=== PATIENT | male | born 1960 | race Caucasian/White ===

== ENCOUNTER 2018-09-16 09:36 | Emergency (ER) | payer OTHER ==
--- NOTE | 2018-09-16 10:05 | UC ---
UC General HPI - HPI Summary HPI Summary: States yesterday morning he developed left flank pain - has gotten progressively worse to the point of being unbearable. No urinary symptoms. No blood in his urine. No fever. No hx of kidney stone. 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 Denies any trauma, heavy lifting or fall. No vomiting. No fever. No URI symptoms. PMHx; CVA, HTN Meds; REviewed DId take his BP meds this AM - History of Current Complaint Chief Complaint: UCGU Stated Complaint: BACK PAIN Time Seen by Provider: 09/16/18 09:55 Pain Intensity: 8 - Allergy/Home Medications Allergies/Adverse Reactions: Allergies Allergy/AdvReac Type Severity Reaction Status Date / Time No Known Allergies Allergy Verified 09/16/18 09:44 PMH/Surg Hx/FS Hx/Imm Hx Previously Healthy: No Cardiovascular History: Cardiac Disease, Hypertension Neurological History: CVA - Surgical History Surgical History: Yes Surgery Procedure, Year, and Place: Left Carotid Stent 05/07/14 - Social History Alcohol Use: Daily Alcohol Amount: beer Substance Use Type: Marijuana Smoking Status (MU): Heavy Every Day Tobacco Smoker Review of Systems All Other Systems Reviewed And Are Negative: Yes Constitutional: Positive: Negative Musculoskeletal: Positive: Other: - left flank pain Physical Exam Triage Information Reviewed: Yes Appearance: Well-Appearing Vital Signs: Initial Vital Signs Temp 98 F 09/16/18 09:41 Pulse 76 09/16/18 09:41 Resp 16 09/16/18 09:41 BP 153/100 09/16/18 09:41 Pulse Ox 100 09/16/18 09:41 Eye Exam: Normal Respiratory: Positive: Lungs clear - diminished breath sounds. Prolonged expiratory phase, Other: Cardiovascular: Positive: RRR, Other: - systolic murmur Abdomen Description: Positive: Nontender, Other: - left sided deep pain, difficulty to reproduce the pain. Diagnostics - Radiology CT scan of abd/pelvis Radiology Interpretation Completed By: Radiologist Summary of Radiographic Findings: CT abd/pelvis -markedly distended bladder, thick walled bladder, suggestive of bladder outlet obstruction Course/Dx - Course Course Of Treatment: This is a 57 yr old with left flank pain Assessment U/A; unremarkable CT - markedly distended bladder - after further questions - patient admits he has urinary retention and frequency and has a hard time initiating urinating Discussed findings on CT and obtaining US including PVR - US showed distended bladder, dilated left hydroureter Denny catheter placed (after speaking with him and at length as he was very reluctant) Labs obtained to make sure no significant renal failure Plan Keep denny in place until follow up with Urology Urology will contact you with an apt. Start Tamsulosin as prescribed If you have any symptoms or fever, pain in abdomen or surrounding denny or blood in urine, call your primary or return to ER or urgent care Blood pressure is elevated - likely related to your condition today. Recommend follow up on your blood pressure We will contact you if any blood work is abnormal - Diagnoses Provider Diagnosis: Urinary retention, Hydroureter, left Discharge - Sign-Out/Discharge Documenting (check all that apply): Patient Departure All imaging exams completed and their final reports reviewed: Yes - Discharge Plan Condition: Fair Disposition: HOME Prescriptions: Tamsulosin CAP* [Flomax CAP*] 0.4 mg PO BEDTIME #30 cap Patient Education Materials: Urinary Retention in Men (ED) Referrals: Mando Gallegos MD [Primary Care Provider] - Additional Instructions: Keep denny in place until follow up with Urology Urology will contact you with an apt. Start Tamsulosin as prescribed If you have any symptoms or fever, pain in abdomen or surrounding denny or blood in urine, call your primary or return to ER or urgent care Blood pressure is elevated - likely related to your condition today. Recommend follow up on your blood pressure We will contact you if any blood work is abnormal - Billing Disposition and Condition Condition: FAIR Disposition: Home
[2018-09-16 12:47] VITALS: BP 167/101
[2018-09-16 15:55] LABS: ABS Basophils 0.1 10^3/ul (0-0.2); ABS Eosinophils 0.1 10^3/ul (0-0.6); ABS Lymphocytes 2.2 10^3/ul (1.0-4.8); ABS Monocytes 0.7 10^3/ul (0-0.8); ABS Neutrophils 5.1 10^3/ul (1.5-7.7); ABS Nucleated RBC 0 10^3/ul; Eosinophil % 1.6 %; Hematocrit 42 % (36-46); Hemoglobin 14.2 g/dL (14.0-18.0); Lymphocyte % 27.1 %; Mean Corpuscular HGB Conc 34 g/dL (31-36); Mean Corpuscular Hemoglobin 33 pg (27-31); Mean Corpuscular Volume 96 fL (80-94); Mean Platelet Volume 8.5 fL (7.4-10.4); Nucleated Red Blood Cells % 0; Platelet Count 310 10^3/uL (150-450); Red Blood Count 4.36 10^6 /uL (4.18-5.48); Red Cell Distribution Width 13 % (10.5-15); White Blood Count 8.1 10^3/uL (3.5-10.8)
[2018-09-16 15:58] LABS: Calcium 9.7 mg/dL (8.6-10.3); Potassium 4.5 mmol/L (3.5-5.0)
[2018-09-16 16:03] LABS: EGFR African American 87.1 (>60)
--- NOTE | 2018-09-17 07:32 | UC ---
- Progress Note Progress Note: reviewed blood work from 09/16/18 as available, reviewed same day notes as available. RN to call pt. Blood work without acute notations, but advise f/u pcp sabina as recommended yesterday. Course/Dx - Diagnoses Provider Diagnoses: Urinary retention, Hydroureter, left Discharge - Sign-Out/Discharge Documenting (check all that apply): Post-Discharge Follow Up All imaging exams completed and their final reports reviewed: Yes - Discharge Plan Condition: Fair Disposition: HOME Prescriptions: Tamsulosin CAP* [Flomax CAP*] 0.4 mg PO BEDTIME #30 cap Patient Education Materials: Urinary Retention in Men (ED) Referrals: Mando Gallegos MD [Primary Care Provider] - Additional Instructions: Keep denny in place until follow up with Urology Urology will contact you with an apt. Start Tamsulosin as prescribed If you have any symptoms or fever, pain in abdomen or surrounding denny or blood in urine, call your primary or return to ER or urgent care Blood pressure is elevated - likely related to your condition today. Recommend follow up on your blood pressure We will contact you if any blood work is abnormal - Billing Disposition and Condition Condition: FAIR Disposition: Home
== END 2018-09-16 12:57 | disposition home or self-care (01) ==
LOC: UCEAST 09:36
DX: R33.9 Retention of urine, unspecified (principal); N13.4 Hydroureter; N32.89 Other specified disorders of bladder; I11.9 Hypertensive heart disease without heart failure; Z86.73 Personal history of transient ischemic attack (TIA), and cerebral infarction without residual deficits; Z95.5 Presence of coronary angioplasty implant and graft; F17.200 Nicotine dependence, unspecified, uncomplicated
CPT/HCPCS: 36415; 51702; 74176; 76770; 80048; 81003; 85025; 99212; G0463

== ENCOUNTER 2018-09-22 10:27 | Emergency (ER) | payer OTHER ==
[2018-09-22 10:40] VITALS: BP 116/72
--- NOTE | 2018-09-22 10:42 | UC ---
Complaint Male HPI - History of Current Complaint Chief Complaint: UCGU Stated Complaint: URINARY COMPLAINT Time Seen by Provider: 09/22/18 10:42 Pain Intensity: 0 - Allergies/Home Medications Allergies/Adverse Reactions: Allergies Allergy/AdvReac Type Severity Reaction Status Date / Time No Known Allergies Allergy Verified 09/22/18 10:40 PMH/Surg Hx/FS Hx/Imm Hx - Surgical History Surgical History: Yes Surgery Procedure, Year, and Place: Left Carotid Stent 05/07/14 - Social History Alcohol Use: Daily Alcohol Amount: beer Substance Use Type: Marijuana Substance Use Comment - Amount & Last Used: daily Smoking Status (MU): Heavy Every Day Tobacco Smoker Type: Cigarettes Physical Exam Vital Signs: Initial Vital Signs Temp 98.8 F 09/22/18 10:37 Pulse 88 09/22/18 10:37 Resp 18 09/22/18 10:37 BP 116/72 09/22/18 10:37 Pulse Ox 100 09/22/18 10:37 Discharge - Discharge Plan Referrals: Mando Gallegos MD [Primary Care Provider] -
== END 2018-09-22 10:57 | disposition left against medical advice (07) ==
LOC: UCEAST 10:27
DX: R39.9 Unspecified symptoms and signs involving the genitourinary system (principal); Z53.21 Procedure and treatment not carried out due to patient leaving prior to being seen by health care provider

== ENCOUNTER 2018-10-26 20:37 | Emergency (ER) | payer OTHER ==
[2018-10-27 00:21] LABS: Urine Appearance Cloudy; Urine Bacteria 1+ (Absent); Urine Bilirubin Negative (Negative); Urine Blood 3+ (Negative); Urine Color Amber; Urine Glucose Negative (Negative); Urine Ketones Negative (Negative); Urine Nitrite Negative (Negative); Urine Protein 2+(100 mg/dL) (Negative); Urine Red Blood Cell 3+(>10/hpf) (Absent); Urine Specific Gravity 1.013 (1.010-1.030); Urine Squamous Epithelial Cell Present (Absent); Urine Urobilinogen Negative (Negative); Urine White Blood Cell 2+(11-20/hpf) (Absent)
[2018-10-27 00:25] LABS: ABS Basophils 0.1 10^3/ul (0-0.2); ABS Eosinophils 0.4 10^3/ul (0-0.6); ABS Lymphocytes 2.5 10^3/ul (1.0-4.8); ABS Monocytes 0.7 10^3/ul (0-0.8); ABS Neutrophils 5.2 10^3/ul (1.5-7.7); Eosinophil % 4.3 %; Hematocrit 38 % (42-52); Hemoglobin 13.2 g/dL (14.0-18.0); Lymphocyte % 27.9 %; Mean Corpuscular HGB Conc 35 g/dL (31-36); Mean Corpuscular Hemoglobin 33 pg (27-31); Mean Corpuscular Volume 95 fL (80-94); Mean Platelet Volume 8.4 fL (7.4-10.4); Nucleated Red Blood Cells % 0.1; Platelet Count 276 10^3/uL (150-450); Red Blood Count 4.02 10^6 /uL (4.18-5.48); Red Cell Distribution Width 13 % (10.5-15); White Blood Count 8.8 10^3/uL (3.5-10.8)
[2018-10-27 00:38] LABS: Calcium 9.2 mg/dL (8.6-10.3); Potassium 3.9 mmol/L (3.5-5.0); Total Bilirubin 0.3 mg/dL (0.2-1.0)
[2018-10-27 00:44] LABS: Albumin/Globulin Ratio 1.3 (1-3); BUN/Creatinine Ratio 28.4 (8-20); C Reactive Protein 9.99 mg/L (<8.01); EGFR African American 78.5 (>60); EGFR Non-African American 64.9 (>60); Globulin 3.2 g/dL (2-4); Total Protein 7.2 g/dL (6.4-8.9)
[2018-10-27] MEDS ORDERED: Iohexol 300* (CONTRAST) 10 ML SDV IV ONE (01:17)
[2018-10-27] MEDS ORDERED: Sulfamethox/Trimethoprim DS 800/160* TAB PO ONE (02:28)
[2018-10-27] MEDS ORDERED: Fluconazole 100 MG TAB* TAB PO ONE (02:28)
--- NOTE | 2018-10-27 02:31 | ED ---
GI/ HPI - HPI Summary HPI Summary: Patient with history of self catheter 4 times a day complains of blood in urine starting 3 days, and decreased urine output today. Patient states he has a history of "kidney issues" which requires him to self catheter. Patient followed by Dr. Dumont. Patient denies fever, cough, sore throat, CP, SOB, N/ V/D, abdominal pain, change in B, penile discharge, testicular symptoms. Medical history is CVA, HTN, enlarged prostate. - History of Current Complaint Chief Complaint: EDUrogenitalProblems Time Seen by Provider: 10/26/18 23:45 Stated Complaint: BLOOD IN URINE PER PT Hx Obtained From: Patient Onset/Duration: Started Days Ago Timing: Constant Severity: Mild Current Severity: Mild Vaginal Bleeding Description: Brownish-Red Pain Intensity: 1 Associated Signs and Symptoms: Positive: Hematuria Aggravating Factor(s): Nothing Alleviating Factor(s): Nothing - Allergy/Home Medications Allergies/Adverse Reactions: Allergies Allergy/AdvReac Type Severity Reaction Status Date / Time No Known Allergies Allergy Verified 10/26/18 20:47 PMH/Surg Hx/FS Hx/Imm Hx Endocrine/Hematology History: Denies: Hx Anticoagulant Therapy Cardiovascular History: Reports: Hx Hypertension - on meds Respiratory History: Reports: Hx Chronic Obstructive Pulmonary Disease (COPD) History: Denies: Hx Dialysis Sensory History: Denies: Hx Legally Blind Opthamlomology History: Denies: Hx Eye Prosthesis EENT History: Denies: Hx Deafness Neurological History: Reports: Hx CVA - Surgical History Surgery Procedure, Year, and Place: Left Carotid Stent 05/07/14 Infectious Disease History: No Infectious Disease History: Denies: Traveled Outside the [place] in Last 30 Days - Family History Known Family History: Positive: Non-Contributory - Social History Alcohol Use: Daily Alcohol Amount: beer Substance Use Type: Reports: Marijuana Substance Use Comment - Amount & Last Used: daily Smoking Status (MU): Heavy Every Day Tobacco Smoker Type: Cigarettes Review of Systems Constitutional: Negative Eyes: Negative ENT: Negative Cardiovascular: Negative Respiratory: Negative Gastrointestinal: Negative Positive: hematuria, other Musculoskeletal: Negative Skin: Negative Neurological: Negative Psychological: Normal All Other Systems Reviewed And Are Negative: Yes Physical Exam - Summary Physical Exam Summary: Abdomen soft nontender. Lung sounds clear to auscultation bilaterally. RRR. Triage Information Reviewed: Yes Vital Signs On Initial Exam: Initial Vitals Temp Pulse Resp BP Pulse Ox 97.8 F 71 15 145/78 98 10/26/18 20:44 10/26/18 20:44 10/26/18 20:44 10/26/18 20:44 10/26/18 20:44 Vital Signs Reviewed: Yes Appearance: Positive: Well-Appearing Skin: Positive: Warm Head/Face: Positive: Normal Head/Face Inspection Eyes: Positive: Normal Neck: Positive: Supple Respiratory/Lung Sounds: Positive: Clear to Auscultation Cardiovascular: Positive: Normal Abdomen Description: Positive: Nontender Musculoskeletal: Positive: Normal Neurological: Positive: Normal Psychiatric: Positive: Normal AVPU Assessment: Alert - [employer] Coma Scale Best Eye Response: 4 - Spontaneous Best Motor Response: 6 - Obeys Commands Best Verbal Response: 5 - Oriented Coma Scale Total: 15 Diagnostics - Vital Signs Vital Signs Temp Pulse Resp BP Pulse Ox 10/26/18 22:45 97.8 F 66 16 115/78 98 10/26/18 20:44 97.8 F 71 15 145/78 98 - Laboratory Lab Results: Lab Results 10/26/18 10/27/18 10/27/18 Range/Units 23:50 00:11 00:11 WBC 8.8 (3.5-10.8) 10^3/uL RBC 4.02 L (4.18-5.48) 10^6 /uL Hgb 13.2 L (14.0-18.0) g/dL Hct 38 L (42-52) % MCV 95 H (80-94) fL MCH 33 H (27-31) pg MCHC 35 (31-36) g/dL RDW 13 (10.5-15) % Plt Count 276 (150-450) 10^3/uL MPV 8.4 (7.4-10.4) fL Neut % (Auto) 58.5 % Lymph % (Auto) 27.9 % Beaver % (Auto) 8.0 % Eos % (Auto) 4.3 % Baso % (Auto) 1.3 % Absolute Neuts (auto) 5.2 (1.5-7.7) 10^3/ul Absolute Lymphs (auto) 2.5 (1.0-4.8) 10^3/ul Absolute Monos (auto) 0.7 (0-0.8) 10^3/ul Absolute Eos (auto) 0.4 (0-0.6) 10^3/ul Absolute Basos (auto) 0.1 (0-0.2) 10^3/ul Absolute Nucleated RBC 0.0 10^3/ul Nucleated RBC % 0.1 Sodium 134 L (135-145) mmol/L Potassium 3.9 (3.5-5.0) mmol/L Chloride 102 (101-111) mmol/L Carbon Dioxide 24 (22-32) mmol/L Anion Gap 8 (2-11) mmol/L BUN 33 H (6-24) mg/dL Creatinine 1.16 (0.67-1.17) mg/dL Est GFR ( Amer) 78.5 (>60) Est GFR (Non-Af Amer) 64.9 (>60) BUN/Creatinine Ratio 28.4 H (8-20) Glucose 94 (70-100) mg/dL Calcium 9.2 (8.6-10.3) mg/dL Total Bilirubin 0.30 (0.2-1.0) mg/dL AST 27 (13-39) U/L ALT 24 (7-52) U/L Alkaline Phosphatase 101 (34-104) U/L C-Reactive Protein 9.99 H (<8.01) mg/L Total Protein 7.2 (6.4-8.9) g/dL Albumin 4.0 (3.2-5.2) g/dL Globulin 3.2 (2-4) g/dL Albumin/Globulin Ratio 1.3 (1-3) Urine Color Kianna Urine Appearance Cloudy Urine pH 6.0 (5-9) Ur Specific Blaine 1.013 (1.010-1.030) Urine Protein 2+(100 mg/dl) A (Negative) Urine Ketones Negative (Negative) Urine Blood 3+ A (Negative) Urine Nitrate Negative (Negative) Urine Bilirubin Negative (Negative) Urine Urobilinogen Negative (Negative) Ur Leukocyte Esterase Negative (Negative) Urine WBC (Auto) 2+(11-20/hpf) A (Absent) Urine RBC (Auto) 3+(>10/hpf) A (Absent) Ur Squamous Epith Cells Present A (Absent) Urine Bacteria 1+ A (Absent) Urine Yeast Present A (Absent) Urine Glucose Negative (Negative) Result Diagrams: 10/27/18 00:11 10/27/18 00:11 Lab Statement: Any lab studies that have been ordered have been reviewed, and results considered in the medical decision making process. GIGU Course/Dx - Course Course Of Treatment: Patient with history of self catheter 4 times a day complains of blood in urine starting 3 days, and decreased urine output today. Patient states he has a history of "kidney issues" which requires him to self catheter. Patient followed by Dr. Dumont. Patient denies fever, cough, sore throat, CP, SOB, N/V/D, abdominal pain, change in B, penile discharge, testicular symptoms. Medical history is CVA, HTN, enlarged prostate. Physical exam:Abdomen soft nontender. Lung sounds clear to auscultation bilaterally. RRR. Vital signs within normal limits. HCB 13.2. UA positive for blood, rbc's , wbc's, bacteria and yeast. CT abdomen and pelvis positive for abnormal thickening of the bladder wall which may represent muscular hypertrophy secondary to bladder outlet obstruction. May also represent cystitis either due to infectious or inflammatory process. Kidneys are normal in appearance. No hydronephrosis or nephrolithiasis. Bladder scan showed 0ml urinary retention after patient self catheter here in the ED. Patient started on Bactrim and Diflucan 100mg daily x 10 days. Patient has appointment tomorrow at 4:[address] Dumont. Patient agrees to follow-up for further evaluation with Dr. Dumont. - Diagnoses Provider Diagnoses: Hematuria, UTI (urinary tract infection), Candiduria Discharge - Sign-Out/Discharge Documenting (check all that apply): Patient Departure Patient Received Moderate/Deep Sedation with Procedure: No - Discharge Plan Condition: Stable Disposition: HOME Prescriptions: Fluconazole 100 MG TAB* [Diflucan 100 MG TAB*] 100 mg PO DAILY 10 Days #10 tab Sulfamethox/Trimethoprim DS* [Bactrim DS 800/160 TAB*] 1 tab PO BID 10 Days #20 tab Patient Education Materials: Urinary Tract Infection in Men (ED), Hematuria (ED ) Referrals: Mando Gallegos MD [Primary Care Provider] - Additional Instructions: Follow-up at your appointment tomorrow with Dr. Dumont for further evaluation. Return to the ED for any new or worsening symptoms. - Billing Disposition and Condition Condition: STABLE Disposition: Home
[2018-10-27 02:46] VITALS: BP 131/73
== END 2018-10-27 02:31 | disposition home or self-care (01) ==
LOC: ED 20:37
DX: B37.49 Other urogenital candidiasis (principal); R31.9 Hematuria, unspecified; J44.9 Chronic obstructive pulmonary disease, unspecified; I10 Essential (primary) hypertension; Z86.73 Personal history of transient ischemic attack (TIA), and cerebral infarction without residual deficits; F17.210 Nicotine dependence, cigarettes, uncomplicated; N40.0 Benign prostatic hyperplasia without lower urinary tract symptoms
CPT/HCPCS: 36415; 74177; 80053; 81003; 81015; 85025; 86140; 87086; 99282; A9270-GY; Q9967

== ENCOUNTER 2018-11-25 06:25 | Observation (INO) | payer OTHER ==
--- NOTE | 2018-11-20 11:19 | HP ---
CC: Mando Gallegos MD * HISTORY AND PHYSICAL: DATE OF PLANNED ADMISSION AND SURGERY: 11/25/18 HISTORY OF PRESENT ILLNESS: Mr. Rosa is a 58-year-old white male who is admitted with urinary retention, prostate enlargement for transurethral resection of the prostate. Please refer to the pre-op history and physical by Dr Gallegos, included in the patient's records. For the last several months, the patient has been having increasing voiding symptoms consisting of hesitancy, intermittency, decreased urinary stream, and feeling of incomplete bladder emptying. He presented to the emergency room about 2 months ago with left flank pain radiating to the left lower quadrant associated with increasing difficulty voiding. He had a renal ultrasound, which showed mild- to-moderate left hydronephrosis and he had a large postvoid residual. A CT scan showed left hydronephrosis and hydroureter without associated ureteral calculi. There was a large degree of urinary retention. He had a Velázquez catheter placed draining 1,200 mL of clear urine. Following the placement of the catheter, his flank pain and abdominal pain resolved and the patient was sent home on catheter drainage. He was then evaluated in my office. At his initial visit, he was started on tamsulosin and taught how to perform intermittent self- catheterization. He then had a cystoscopy, which showed a moderately obstructing prostate with heavy bladder trabeculations, but no calculi or bladder tumors were seen. The patient was asked to continue on intermittent catheterization; however, he has not been performing it on a regular basis. He then had urodynamic studies, which showed a high voiding detrusor pressure of about 100 cm of water, indicating very good detrusor function and confirming that the retention is due to obstruction and not neurogenic bladder. Follow up renal ultrasound with catheter drainage showed resolution of the left hydronephrosis . The patient is now admitted for transurethral resection of the prostate. PAST MEDICAL HISTORY AND SYSTEM REVIEW: detailed in Dr. Gallegos's history and physical. MEDICATIONS: 1. He is hypertensive, on HCTZ 12.5 mg daily and on lisinopril 2.5 mg daily. 2. He has hyperlipidemia, on atorvastatin 80 mg daily. ALLERGIES: He denies any allergies to medications. FAMILY HISTORY: He denies any family history of prostate cancer. SOCIAL HISTORY: The patient is a chronic heavy smoker and also significant degree of alcohol intake, drinking 7 to 10 beers every day. DIAGNOSTIC DATA: The patient had a screening CT of the chest and was noted to have a small nodule that was further evaluated with a PET scan and the recommendation is for observation only. PHYSICAL EXAMINATION GENERAL: White male who is slim and looks older than his age. VITAL SIGNS: Blood pressure 130/70, pulse of 60, oxygen saturation 93% on room air. LUNGS: Bilateral wheezing. HEART: Regular and rhythmic. No murmurs. ABDOMEN: Soft. No masses. No tenderness. No CVA tenderness. : External genitalia are normal. RECTAL: Exam showed a moderately enlarged, but nonsuspicious prostate. IMPRESSION: 1. Urinary retention, most likely secondary to prostate enlargement with high voiding detrusor pressure on urodynamic studies with failure of medical treatment. 2. Chronic heavy smoking. 3. Excessive alcohol intake. 4. Essential hypertension, on treatment. PLAN/RECOMMENDATIONS: Plan is for cystoscopy and transurethral resection of the prostate. I discussed the operation in detail with the patient. Some of the potential complications including infection, hematuria, and a small incidence of urinary incontinence, high incidence of retrograde ejaculation were discussed. I also discussed the fact that although the voiding detrusor pressure is high, there is a small incidence of persistent increased postvoid residual due to the overdistention of the bladder. All his questions were answered. [id number]/[facility] #: [id number] GINA
[~2018-11-25 06:25] MED LIST: Buffered Lidocaine 1% SYRIN* 1 ML/SYRINGE INTRADERM ONE
[2018-11-25] MEDS ORDERED: cefTRIAXone(*) 2 GM ADDV.VIAL IVPB ONE (06:39)
[2018-11-25] MEDS ORDERED: Buffered Lidocaine 1% SYRIN* 1 ML/SYRINGE INTRADERM ONE (06:39)
[2018-11-25] MEDS: Lactated Ringers 1000 ML Bag* 1,000 ML IV SCH ×2 (07:02→13:16)
[2018-11-25] MEDS ORDERED: Midazolam* 1 MG/ML 5 ML VIAL (5 MG) ONE (09:09)
[2018-11-25] MEDS ORDERED: fentaNYL* 50 MCG/ML 2 ML VIAL (100 MCG VIAL) ONE ×3 (09:14→10:54)
[2018-11-25] MEDS ORDERED: Dexamethasone IV* 4 MG/ML 1 ML (4 MG) ONE (09:31)
[2018-11-25] MEDS ORDERED: fentaNYL* 50 MCG/ML 2 ML VIAL (100 MCG VIAL) IV PRN (10:01)
[2018-11-25] MEDS ORDERED: oxyCODONE/Acetamin 5/325 MG* TAB PO PRN ×2 (10:01→13:52)
[2018-11-25] MEDS ORDERED: Ondansetron INJ* 2 MG/ML VIAL IV PRN (10:01)
[2018-11-25] MEDS ORDERED: Naloxone* 0.4 MG/ML 1 ML VIAL IV PRN (10:01)
[2018-11-25] MEDS ORDERED: HYDROmorphone INJ1* 1 MG/ML SYRINGE IV PRN (10:01)
[2018-11-25] MEDS ORDERED: DiMENhydriNATE IV* 50 MG/ML VIAL IV PUSH PRN (10:01)
[2018-11-25] MEDS ORDERED: Ondansetron INJ* 2 MG/ML VIAL ONE (10:28)
[2018-11-25] MEDS ORDERED: hydrALAZINE IV* 20 MG/ML VIAL ONE (11:44)
[2018-11-25] MEDS ORDERED: oxyCODONE/Acetamin 5/325 MG* TAB ONE (12:31)
--- NOTE | 2018-11-25 12:57 | OP ---
CC: Dr. Gallegos * DATE OF OPERATION: 11/25/18 - ROOM #333 DATE OF : 60 SURGEON: Alex Dumont MD ANESTHESIOLOGIST: Celestino Turner MD ANESTHESIA: General. PRE-OP DIAGNOSES: 1. Urinary retention. 2. Benign prostatic hyperplasia. POST-OP DIAGNOSES: 1. Urinary retention. 2. Benign prostatic hyperplasia. OPERATIVE PROCEDURE: 1. Cystoscopy. 2. Transurethral resection of the prostate. INDICATIONS: Mr. Rosa is a 58-year-old white male who had a long history of bladder outlet obstruction and who presented to the emergency room 2 months ago with left flank and abdominal pain and was noted to have left hydroureteronephrosis and was in urinary retention of 1,200 cc. Workup was cystoscopy and urodynamic studies showed an obstructing prostate, heavy bladder tuberculations and a high voiding detrusor pressure. The patient failed medical treatment and trials of voiding. His left hydronephrosis resolved on catheter drainage. Because of the above history, TURP was advised and accepted. PATHOLOGY AT CYSTOSCOPY: The penile and bulbar urethrae looked normal. The prostatic urethra measured about 2.5 cm in length and there was significant degree of obstruction mostly at the bladder neck circumferentially. The lateral lobes are only moderately enlarged and obstructing. Examination of the bladder showed diffuse heavy trabeculations with multiple cellules. There were no suspicious bladder lesions seen. No caliculi or diverticula were noted. The prostate adenoma was moderately vascular. The ureteral orifices were very close to the bladder neck. DESCRIPTION OF PROCEDURE: After successful general anesthesia, the patient was placed in the lithotomy position and was prepped and draped for a cystoscopy. Cystoscopy was performed. The findings in the prostatic urethra and in the bladder were noted. The resectoscope was then introduced inside the bladder. Mannitol-sorbitol solution was used for irrigation, and the inflow and outflow were adjusted to avoid overdistention of the bladder. Resection of the obstructing tissue at the bladder neck was then done circumferentially until the identification of the bladder neck muscle fibers. Care was taken to avoid the ureteral orifices. Resection of the adenoma was then performed starting at 5 o'clock and proceeding anteriorly. The right lobe was resected next. The apical and the anterior tissue were resected last. The limits of the resection were the bladder neck proximally, the verumontanum distally, and the capsule circumferentially. There was an open sinus at 2 o'clock with venous oozing and that was partially controlled with fulguration. The bladder was then thoroughly irrigated and all the prostate chips were removed. All bleeders were electrocoagulated. At the completion of the resection, the prostatic urethra was wide open. There was good hemostasis except oozing of venous blood from the open sinus at 2 o'clock. There were no other capsular perforation. Both ureteral orifices were intact, but very close to the site of the resection. There were no residual prostate chips noted. The verumontanum and external sphincter were all intact. The resectoscope was then moved and the #22-Irish Velázquez catheter was passed inside the bladder and the balloon inflated with 40 cc of water. The catheter was placed under gentle traction and taped to the right thigh of the patient. Irrigation yielded clear returns. The patient tolerated the procedure well and left the operating room in good condition. The blood loss was estimated at less than 100 cc. The specimen was prostate chips. [id number]/[facility] #: [id number] [facility] HOSPITALJigar
[2018-11-25] MEDS ORDERED: Oxybutynin TAB* 5 MG PO PRN (13:52)
[2018-11-25] MEDS ORDERED: Lidocaine 2% JELLY* 5 ML TUBE LIDO2GEL7 TOPICAL PRN (13:59)
[2018-11-25] MEDS ORDERED: Lidocaine 2% JELLY* 6 ML JELLY TOPICAL PRN (14:18)
[2018-11-25] MEDS: Lisinopril TAB* 5 MG PO SCH (16:08)
[2018-11-25] MEDS ORDERED: Hydrochlorothiazide TAB* 25 MG PO SCH (18:00)
[2018-11-25] MEDS ORDERED: Atorvastatin* 80 MG TAB PO SCH (21:00)
[2018-11-25] MEDS: LR @ 40 MLS/HR IV SCH (21:16)
[2018-11-26] MEDS: LR @ 40 MLS/HR IV SCH (03:57)
[2018-11-26] MEDS ORDERED: cefTRIAXone(*) 1 GM in NS 0.9% 50 ML* 50 ML IVPB ONE (07:00)
[2018-11-26 07:17] VITALS: BP 128/77
[2018-11-26] MEDS: Lisinopril TAB* 5 MG PO SCH (08:05)
--- NOTE | 2018-11-26 09:22 | DS ---
CC: Dr. Mando Gallegos * DISCHARGE SUMMARY: DATE OF ADMISSION: 11/25/18 DATE OF DISCHARGE: 11/26/18 FINAL DIAGNOSES: 1. Urinary retention. 2. Benign prostatic hyperplasia. OPERATION: Transurethral resection of the prostate on 11/25/18. HISTORY: Mr. Rosa is a 58-year-old white male who presented 2 months ago to the emergency room with left flank pain, abdominal pain, and was noted to be in urinary retention. He had a Velázquez catheter inserted and 1,200 cc of urine was drained. The left hydronephrosis resolved after catheter drainage. The patient was worked up in the office for the urinary retention and had a cystoscopy, which showed an enlarged and obstructing prostate and heavy bladder trabeculations. Urodynamic studies showed a high voiding detrusor pressure, making him a good candidate for transurethral resection of the prostate. The patient failed trials of voiding on tamsulosin and had recurrence of his urinary retention. Because of the above history and the persistent retention, TURP was advised and accepted. Past history is otherwise negative. PAST MEDICAL HISTORY: The patient is a chronic heavy smoker. SOCIAL HISTORY: He reports excessive alcohol intake MEDICATIONS: He is hypertensive, maintains on HCTZ 12.5 mg daily and lisinopril 2.5 mg daily. He has hyperlipidemia, on atorvastatin 80 mg daily. ALLERGIES: He denies any allergies to medications. PHYSICAL EXAM: Preoperative physical exam showed a white male who looks a lot older than his age and he has some wheezing in his lungs. Rectal exam showed a moderately enlarged, but nonsuspicious prostate. LABORATORY DATA: Preoperative lab work was within normal. His PSA was 1.1. Urine culture was negative. COURSE IN HOSPITAL: The patient was admitted the morning of his surgery. He underwent an uncomplicated transurethral resection of the prostate under general anesthesia. He was observed overnight, and by the morning, his urine was clear. His vital signs were normal. He was doing very well and had no complaint. The patient was discharged home in good condition with normal vital signs, on Velázquez catheter drainage. Pathology showed the resected prostate tissue to be benign. The plan is to see him in the office 6 days postoperatively for Velázquez catheter removal. [id number]/[facility] #: [id number] [facility]LAND[facility]
== END 2018-11-26 10:20 | disposition home or self-care (01) ==
LOC: OR 06:25 → SSU 13:46
PROVIDERS: ADMIT Urology; ATTEND Urology
PROC: 0VT08ZZ Resection of Prostate, Via Natural or Artificial Opening Endoscopic (ICD-10-PCS; principal; 2018-11-25 08:45)
DX: N40.1 Benign prostatic hyperplasia with lower urinary tract symptoms (principal); R33.8 Other retention of urine; N13.8 Other obstructive and reflux uropathy; I10 Essential (primary) hypertension; Z86.73 Personal history of transient ischemic attack (TIA), and cerebral infarction without residual deficits; F10.20 Alcohol dependence, uncomplicated; J43.9 Emphysema, unspecified; R91.1 Solitary pulmonary nodule; E78.00 Pure hypercholesterolemia, unspecified; Z68.1 Body mass index [BMI] 19.9 or less, adult; E78.5 Hyperlipidemia, unspecified; Z79.82 Long term (current) use of aspirin; Z79.899 Other long term (current) drug therapy; F17.210 Nicotine dependence, cigarettes, uncomplicated
CPT/HCPCS: 88305; A9270-GY; G0378; J0360; J0696; J1100; J2250; J2405; J3010

== ENCOUNTER 2019-05-23 11:41 | Emergency (ER) | payer OTHER ==
[2019-05-23] MEDS ORDERED: Tetracaine 0.5% OPTH.SOL 4 ML* 1 DROP BTL BOTH EYES ONE (11:42)
[2019-05-23] MEDS ORDERED: Fluorescein Sodium TOPICAL* 1 MG TEST STRIP OPHTHALMIC ONE (11:42)
[2019-05-23 11:51] VITALS: BP 116/69
[2019-05-23] MEDS ORDERED: Tetan/Diph/Pertus SYR(Tdap)* 0.5 ML SYR(BOOSTRIX) use SYR contains LATEX IM ONE (11:56)
--- NOTE | 2019-05-23 11:56 | UC ---
Eye Complaint HPI - HPI Summary HPI Summary: 58 yo male presents with RIGHT eye FB. He tells me that he was working with metal 2 days ago and some brass shavings got into his right eye. Since that time has had a FB sensation and clear eye drainage. He tried to flush the eye at home with no relief. He does not wear glasses or contacts. Denies vision changes. Unsure date of last tetanus - History of Current Complaint Chief Complaint: UCEye Stated Complaint: FOREIGN BODY IN EYE Time Seen by Provider: 05/23/19 11:56 Hx Obtained From: Patient Onset/Duration: Sudden Onset Severity Initially: Moderate Severity Currently: Moderate Pain Intensity: 7 Pain Scale Used: 0-10 Numeric - Allergies/Home Medications Allergies/Adverse Reactions: Allergies Allergy/AdvReac Type Severity Reaction Status Date / Time No Known Allergies Allergy Verified 05/23/19 11:51 PMH/Surg Hx/FS Hx/Imm Hx Cardiovascular History: Hypertension Other History Of: Negative For: Anticoagulant Therapy - Surgical History Surgical History: Yes Surgery Procedure, Year, and Place: Left Carotid Stent 05/07/14 - Family History Known Family History: Positive: Non-Contributory - Social History Occupation: Unemployed Lives: With Family Alcohol Use: Daily Alcohol Amount: 6 per day Substance Use Type: Marijuana Substance Use Comment - Amount & Last Used: daily, hx of other drug use Smoking Status (MU): Heavy Every Day Tobacco Smoker Type: Cigarettes Amount Used/How Often: pack a day for 40 yrs Household Exposure Type: Cigarettes Review of Systems All Other Systems Reviewed And Are Negative: No Constitutional: Positive: Negative Skin: Positive: Negative Eyes: Positive: Other - FB right eye Respiratory: Positive: Negative Cardiovascular: Positive: Negative Neurological: Positive: Negative Psychological: Positive: Negative Physical Exam - Summary Physical Exam Summary: GENERAL: WDWN. No pain distress. SKIN: No rashes, sores, lesions, or open wounds. HEENT: Head: AT/NC Eyes: EOM intact. PERRLA. RIGHT EYE: Mild scleral injection. Mild clear discharge. Obvious 1mm metal appearing FB at the 7o'clock position of the cornea overlying the iris. No rust ring appreciated. No other FB appreciated. CHEST: No accessory muscle use. Breathing comfortably and in no distress. CV: Pulses intact. Cap refill <2seconds NEURO: Alert. PSYCH: Age appropriate behavior. Triage Information Reviewed: Yes Vital Signs: Initial Vital Signs Temp 98.3 F 05/23/19 11:46 Pulse 76 05/23/19 11:46 Resp 18 05/23/19 11:46 BP 116/69 05/23/19 11:46 Pulse Ox 100 05/23/19 11:46 Vital Signs Reviewed: Yes Eye Complaint Course/Dx - Course Course Of Treatment: 1 drop of tetracaine instilled and good anesthetization achieved. A 22G needle was used to try to remove the metal FB. Unsuccessful x3 attempts. I called the space operations officer Director Marketing Communications, Dr. Rebolledo, and he will see pt in his clinic ([facility]) right now. Discussed with pt and will drive him there now - Differential Dx/Diagnosis Provider Diagnosis: FB eye Discharge ED - Sign-Out/Discharge Documenting (check all that apply): Patient Departure All imaging exams completed and their final reports reviewed: No Studies - Discharge Plan Condition: Stable Disposition: HOME Referrals: Mando Gallegos MD [Primary Care Provider] - Jerman Rebolledo MD [Medical Doctor] - Additional Instructions: Go to Dr. Redding's office across the street. Dr. Rebolledo will see you now for further treatment of the metal in your eye YOU WERE GIVEN A TETANUS SHOT IN OUT CLINIC TODAY - Billing Disposition and Condition Condition: STABLE Disposition: Home
== END 2019-05-23 12:48 | disposition home or self-care (01) ==
LOC: UCEAST 11:41
DX: T15.91XA Foreign body on external eye, part unspecified, right eye, initial encounter (principal); I10 Essential (primary) hypertension; F17.210 Nicotine dependence, cigarettes, uncomplicated; X58.XXXA Exposure to other specified factors, initial encounter; Y92.9 Unspecified place or not applicable
CPT/HCPCS: 90471; 90715; 99211; A9270-GY; G0463